=== PATIENT | female | born 1955 | race Caucasian/White ===

== ENCOUNTER 2018-03-25 14:46 | Emergency (ER) | END 2018-03-25 17:18 | disposition home or self-care (01) ==

== ENCOUNTER 2018-12-20 20:29 | Emergency (ER) | payer OTHER ==
[~2018-12-20] VITALS: Ht 152.4 cm; Wt 59.2 kg
[~2018-12-20 20:29] MED LIST: MECL12.574 PO
[2018-12-20 21:05] VITALS: Ht 152.4 cm; Wt 59.2 kg
[2018-12-20] MEDS ORDERED: AZTREONAM 1 GM/NS (PMX) 50 ML IVPB STA (21:11)
[2018-12-20] MEDS ORDERED: SODIUM CHLORIDE 0.9% 1L BAG IV* STA (21:11)
[2018-12-20] MEDS ORDERED: ACETAMINOPHEN 325 MG TAB PO ONE (21:30)
[2018-12-20] MEDS ORDERED: VANCOMYCIN 1 GM (PMX) 250 ML IVPB ONE (21:30)
--- NOTE | 2018-12-20 22:25 | ERD ---
ER Documentation Chief Complaint Chief Complaint C/O ST, COUGH, FEVER, AP, VOMITING/DIARRHEA X1 WEEK HPI 63-year-old woman complains of fever, cough, congestion, sore throat, body aches, diarrhea times 1 day, she was triaged as having symptoms for 1 week although she states her symptoms began this morning. She denies chest pain or shortness of breath, no vomiting, no headache or blurry vision, no neck pain or stiffness. ROS All systems reviewed and are negative except as per history of present illness. Medications Home Meds Active Scripts Ibuprofen* (Motrin*) 600 Mg Tab, 600 MG PO Q8 PRN for PAIN AND/OR INFLAMMATION, #30 TAB Prov:GOGO HARTMANN MD 12/20/18 Mag Hydrox/Al Hydrox/Simeth (Maalox Advanced Suspension) 355 Ml Oral.susp, 2 TSP PO TID PRN for PAIN, #20 OZ Prov:GOGO HARTMANN MD 12/20/18 Meclizine Hcl* (Antivert*) 12.5 Mg Tab, 25 MG PO Q6H PRN for DIZZINESS, #15 TAB Prov:MEDINA ABREU MD 03/25/18 Allergies Allergies: Coded Allergies: Penicillins (Verified Allergy, Unknown, rash, 03/25/18) PMhx/Soc History of Surgery: Yes (C SECTION) Anesthesia Reaction: No Hx Neurological Disorder: No Hx Respiratory Disorders: No Hx Cardiac Disorders: No Hx Psychiatric Problems: No Hx Miscellaneous Medical Probl: Yes (Vertigo) Hx Alcohol Use: No Hx Substance Use: No Hx Tobacco Use: No Smoking Status: Never smoker FmHx Family History: No diabetes Physical Exam Vitals Vital Signs Date Temp Pulse Resp B/P (MAP) Pulse Ox O2 O2 Flow FiO2 Time Delivery Rate 12/20/18 101.1 21:45 12/20/18 101.8 22 124/65 97 21:32 (84) 12/20/18 101.8 105 22 124/65 97 21:05 (84) Physical Exam GENERAL: Well-developed, well-nourished, febrile HEENT: Positive nasal congestion no cervical spine tenderness or step-off deformities, no goiter, no jaundice or icterus, extraocular movements intact without pain. NEURO: Alert and oriented 3, cranial nerves II through XII intact bilaterally, pupils equal round reactive to light, no focal deficits or facial asymmetry, sensation intact distally Strength 5/5 in upper and lower extremities bilaterally CARDIAC: Tachycardic and regular, no murmurs rubs or gallops LUNGS: Clear bilaterally no wheezing crackles or stridor ABDOMEN: Soft nontender, no guarding, no rigidity, no rebound, no psoas sign no obturator sign. SKIN: Warm and dry to touch, no abrasions, contusions, or hematomas, no lacerations, no ecchymosis, no target lesions, and without ulcers EXTREMITIES: No clubbing cyanosis or edema, calves are bilaterally symmetrical, no Homans sign, no popliteal cord sign. Distal pulses equal and bilateral PSYCH: Normal affect without agitation or irritability Result Diagram: 12/20/18212112/20/182121 Results 24 hrs Laboratory Tests Test 12/20/18 21:22 12/20/18 21:25 12/20/18 23:53 White Blood Count 11.2 10^3/ul Red Blood Count 4.60 10^6/ul Hemoglobin 14.0 g/dl Hematocrit 41.2 % Mean Corpuscular Volume 89.6 fl Mean Corpuscular Hemoglobin 30.4 pg Mean Corpuscular 34.0 g/dl Hemoglobin Concent Red Cell Distribution Width 13.2 % Platelet Count 264 10^3/UL Mean Platelet Volume 9.2 fl Immature Granulocytes % 0.400 % Neutrophils % 79.7 % Lymphocytes % 14.0 % Monocytes % 4.7 % Eosinophils % 1.0 % Basophils % 0.2 % Nucleated Red Blood Cells % 0.0 /100WBC Immature Granulocytes # 0.050 10^3/ul Neutrophils # 8.9 10^3/ul Lymphocytes # 1.6 10^3/ul Monocytes # 0.5 10^3/ul Eosinophils # 0.1 10^3/ul Basophils # 0.0 10^3/ul Nucleated Red Blood Cells # 0.0 10^3/ul Prothrombin Time 11.9 Sec Prothrombin Time Ratio 0.9 INR International 0.87 Normalized Ratio Activated Partial Thromboplast 27.4 Sec Time Urine Color YELLOW Urine Clarity SLIGHTLY CLOUDY Urine pH 5.0 Urine Specific [place] 1.025 Urine Ketones NEGATIVE mg/dL Urine Nitrite NEGATIVE mg/dL Urine Bilirubin NEGATIVE mg/dL Urine Urobilinogen NEGATIVE mg/dL Urine Leukocyte Esterase TRACE Juhi/ul Urine Microscopic RBC 33 /HPF Urine Microscopic WBC 3 /HPF Urine Bacteria FEW /HPF Urine Mucus MODERATE /HPF Urine Yeast (Budding) FEW /HPF Urine Hemoglobin 3+ mg/dL Urine Glucose NEGATIVE mg/dL Urine Total Protein 1+ mg/dl Sodium Level 139 mmol/L Potassium Level 4.0 mmol/L Chloride Level 106 mmol/L Carbon Dioxide Level 23 mmol/L Anion Gap 10 Blood Urea Nitrogen 14 mg/dl Creatinine 0.68 mg/dl Est Glomerular Filtrat > 60 mL/min Rate mL/min Glucose Level 116 mg/dl Calcium Level 9.0 mg/dl Total Bilirubin 0.2 mg/dl Direct Bilirubin 0.00 mg/dl Indirect Bilirubin 0.2 mg/dl Aspartate Amino Transf (AST/SGOT) 26 IU/L Alanine 16 IU/L Aminotransferase (ALT/SGPT) Alkaline Phosphatase 130 IU/L Troponin I < 0.012 ng/ml Total Protein 8.0 g/dl Albumin 4.1 g/dl Globulin 3.90 g/dl Albumin/Globulin Ratio 1.05 POC Venous Lactate 1.0 mmol/L 0.8 mmol/L Current Medications Medications Dose Sig/Blanca Start Time Status Last (Trade) Ordered Route PRN Stop Time Admin Dose Reason Admin Sodium 1,780 ml BOLUS OVER 2 12/20/18 DC 12/20/18 Chloride HOURS STAT 21:11 21:45 (NS) IV* 12/20/18 21:12 Vancomycin 250 ml @ ONCE ONCE 12/20/18 DC 12/20/18 HCl 125 mls/hr IVPB 21:30 23:44 12/20/18 23:29 Aztreonam 50 ml @ ONCE STAT 12/20/18 DC 12/20/18 100 mls/hr IVPB 21:11 22:40 12/20/18 21:40 650 mg ONCE ONCE 12/20/18 DC 12/20/18 Acetaminophen PO 21:30 21:45 (Tylenol 12/20/18 21:31 Tab) Fluconazole 200 mg ONCE ONCE 12/20/18 DC 12/20/18 (Diflucan) PO 22:30 23:28 12/20/18 22:31 Ondansetron 4 mg ONCE ONCE 12/20/18 DC HCl (Zofran IV 22:26 Inj) 12/20/18 22:27 Procedures/MDM IV line was established patient was placed on environmental monitoring technician rhythm strip revealed a sinus tachycardia at 100 bpm with upright P and T waves. Patient was febrile. Blood and urine cultures have been ordered results are pending I will follow-up. I do not suspect sepsis. I administered 1 L normal saline IV, aztreonam 1 g IV, vancomycin 1 g IV, acetaminophen p.o., and Zofran 4 mg IV. EKG performed, read by me revealed a normal sinus rhythm at 98 bpm, normal axis, narrow QRS complex, no concerning ST elevations or depressions noted Chest X-ray 1V Interpreted by me: Soft Tissue: No acute abnormalities Bones: No acute abnormalities Mediastinum/Cardiac Silhouette/Lungs: No acute abnormalities CT scan of the abdomen and pelvis was performed findings consistent with diarrheal illness and cholelithiasis, no acute inflammatory infectious pathology noted, please refer to radiologist dictation for full report. CBC and electrolytes are normal, liver function tests were normal, troponin was negative, lactic acid was low, urine analysis positive for fungal infection. I administered fluconazole 200 mg p.o. x1 Patient's vital signs are normal at this time and she defervesced she did receive IV antibiotics and antifungal therapy in the ER and will be discharged with medications for her symptoms, no indication for any further antibiotics Differential diagnoses considered, included but not limited to acute coronary syndrome, pulmonary embolism, aortic dissection, abdominal aortic aneurysm, sepsis, stroke, meningitis, encephalitis, pneumonia, appendicitis, cholecystitis, bowel obstruction, pyelonephritis, nephrolithiasis, cystitis, as well as metabolic, hematologic, and electrolyte abnormalities. As well as a bscess, cellulitis, fractures, and dislocations. Patient feels much better at this time, and vital signs are normal, symptoms have improved. I did give strict instructions to return to the ED if symptoms continue or worsen, patient will otherwise follow-up with primary care physician. Patient understood instructions and agreed to plan. Disclaimer: Inadvertent spelling and grammatical errors are likely due to EHR/dictation software use and do not reflect on the overall quality of patient care. Also, please note that the electronic time recorded on this note does not necessarily reflect the actual time of the patient encounter. Departure Diagnosis: Primary Impression: Diarrhea Diarrhea type: unspecified type Qualified Codes: R19.7 - Diarrhea, unspecified Additional Impressions: Acute URI Fungus infection Condition: Good GOGO HARTMANN MD Dec 20, 2018 22:25
[2018-12-20] MEDS ORDERED: ONDANSETRON 4 MG INJ IV ONE (22:26)
[2018-12-20] MEDS ORDERED: FLUCONAZOLE 200 MG TAB PO ONE (22:30)
[2018-12-20] MEDS ORDERED: MAG355OR14 PO (23:57)
[2018-12-20] MEDS ORDERED: IBUP-1542 PO (23:57)
[2018-12-21 02:35] VITALS: BP 144/78; PULSE 78; RESP 16
== END 2018-12-21 02:36 | disposition home or self-care (01) ==
LOC: E/R 20:29
DX: J06.9 Acute upper respiratory infection, unspecified (principal); R19.7 Diarrhea, unspecified; B49 Unspecified mycosis; R10.9 Unspecified abdominal pain
CPT/HCPCS: 36415; 71045; 74176; 80053; 81001; 83605; 84484; 85025; 85610; 85730; 87040; 87086; 87400; 93005; 96365; 96375; J2405; J3370; J7030; Z7502; Z7610

== ENCOUNTER 2019-05-06 16:23 | Emergency (ER) | payer OTHER ==
[~2019-05-06] VITALS: Ht 152.4 cm; Wt 61.3 kg
[~2019-05-06 16:23] MED LIST changes: +IBUP-1542 PO; +MAG355OR14 PO
[2019-05-06 17:04] VITALS: Ht 152.4 cm; Wt 61.3 kg
--- NOTE | 2019-05-06 23:30 | ERD ---
ER Documentation Chief Complaint Chief Complaint LUQ pain that radiates to back x 2 days, denies fever, n/v HPI 63-year-old female presenting with left upper quadrant pain that radiates to her back for the past 2 days. The pain is burning, intermittent, with no alleviating or exacerbating factors. Pain is moderate to severe. She denies any associated fever, chills, nausea, vomiting, melena or hematochezia. No dysuria or hematuria. No chest pain or shortness of breath. ROS All systems reviewed and are negative except as per history of present illness. Medications Home Meds Active Scripts Ibuprofen* (Motrin*) 600 Mg Tab, 600 MG PO Q8 PRN for PAIN AND/OR INFLAMMATION, #30 TAB Prov:GOGO HARTMANN MD 12/20/18 Mag Hydrox/Al Hydrox/Simeth (Maalox Advanced Suspension) 355 Ml Oral.susp, 2 TSP PO TID PRN for PAIN, #20 OZ Prov:GOGO HARTMANN MD 12/20/18 Meclizine Hcl* (Antivert*) 12.5 Mg Tab, 25 MG PO Q6H PRN for DIZZINESS, #15 TAB Prov:MEDINA ABREU MD 03/25/18 Allergies Allergies: Coded Allergies: Penicillins (Verified Allergy, Unknown, rash, 03/25/18) PMhx/Soc History of Surgery: Yes (C SECTION) Anesthesia Reaction: No Hx Neurological Disorder: No Hx Respiratory Disorders: No Hx Cardiac Disorders: No Hx Psychiatric Problems: No Hx Miscellaneous Medical Probl: Yes (Vertigo) Hx Alcohol Use: No Hx Substance Use: No Hx Tobacco Use: No Smoking Status: Never smoker FmHx Family History: No diabetes Physical Exam Vitals Vital Signs Date Temp Pulse Resp B/P (MAP) Pulse Ox O2 O2 Flow FiO2 Time Delivery Rate 05/06/19 98.0 65 16 143/74 100 Room Air 23:51 (97) 05/06/19 97.9 82 16 114/63 98 17:04 (80) Physical Exam Const: No acute distress Head: Atraumatic Eyes: Normal Conjunctiva ENT: Normal External Ears, Nose and Mouth. Neck: Full range of motion. No meningismus. Resp: Clear to auscultation bilaterally Cardio: Regular rate and rhythm, no murmurs Abd: Soft, mild tenderness to palpation in the left upper quadrant with no rebound or guarding. Negative Padilla sign. No McBurney's point tenderness. Non distended. Normal bowel sounds Skin: No petechiae or rashes Back: No midline or flank tenderness Ext: No cyanosis, or edema Neur: Awake and alert Psych: Normal Mood and Affect Result Diagram: 05/06/19185105/06/192 Results 24 hrs Laboratory Tests Test 05/06/19 18:52 White Blood Count 8.5 10^3/ul Red Blood Count 4.19 10^6/ul Hemoglobin 12.5 g/dl Hematocrit 37.9 % Mean Corpuscular Volume 90.5 fl Mean Corpuscular Hemoglobin 29.8 pg Mean Corpuscular Hemoglobin Concent 33.0 g/dl Red Cell Distribution Width 13.4 % Platelet Count 274 10^3/UL Mean Platelet Volume 9.1 fl Immature Granulocytes % 0.100 % Neutrophils % 47.7 % Lymphocytes % 38.4 % Monocytes % 8.0 % Eosinophils % 5.2 % Basophils % 0.6 % Nucleated Red Blood Cells % 0.0 /100WBC Immature Granulocytes # 0.010 10^3/ul Neutrophils # 4.1 10^3/ul Lymphocytes # 3.3 10^3/ul Monocytes # 0.7 10^3/ul Eosinophils # 0.4 10^3/ul Basophils # 0.1 10^3/ul Nucleated Red Blood Cells # 0.0 10^3/ul Urine Color YELLOW Urine Clarity CLEAR Urine pH 6.0 Urine Specific [place] 1.020 Urine Ketones NEGATIVE mg/dL Urine Nitrite NEGATIVE mg/dL Urine Bilirubin NEGATIVE mg/dL Urine Urobilinogen NEGATIVE mg/dL Urine Leukocyte Esterase NEGATIVE Juhi/ul Urine Microscopic RBC 15 /HPF Urine Microscopic WBC 2 /HPF Urine Mucus FEW /HPF Urine Hemoglobin 3+ mg/dL Urine Glucose NEGATIVE mg/dL Urine Total Protein NEGATIVE mg/dl Sodium Level 140 mmol/L Potassium Level 3.9 mmol/L Chloride Level 107 mmol/L Carbon Dioxide Level 29 mmol/L Anion Gap 4 Blood Urea Nitrogen 18 mg/dl Creatinine 0.81 mg/dl Est Glomerular Filtrat Rate mL/min > 60 mL/min Glucose Level 95 mg/dl Calcium Level 9.2 mg/dl Total Bilirubin 0.3 mg/dl Direct Bilirubin 0.00 mg/dl Indirect Bilirubin 0.3 mg/dl Aspartate Amino Transf (AST/SGOT) 24 IU/L Alanine Aminotransferase (ALT/SGPT) 17 IU/L Alkaline Phosphatase 89 IU/L Total Protein 6.9 g/dl Albumin 3.7 g/dl Globulin 3.20 g/dl Albumin/Globulin Ratio 1.15 Lipase 219 U/L Current Medications Medications Dose Sig/Blanca Start Time Status Last (Trade) Ordered Route PRN Stop Time Admin Dose Reason Admin Famotidine 20 mg ONCE STAT 05/06/19 DC 05/06/19 (Pepcid) PO 23:36 23:49 05/06/19 23:37 40 ml ONCE STAT 05/06/19 DC 05/06/19 Miscellaneous PO 23:36 23:49 Medication 05/06/19 23:37 (Gi Cocktail (2)) Procedures/MDM EMERGENT LABS AND DIAGNOSTIC STUDIES: Lab Results above were reviewed and interpreted by me. CBC: no anemia or evidence of infection CMP: No evidence of clinically significant electrolyte abnormality, acidosis, renal failure, hypoglycemia, liver disease, or biliary obstruction Lipase: no evidence of pancreatitis UA: Microscopic hematuria noted. No evidence of infection Radiology Results as interpreted by Radiology below were reviewed by Adelaida Quispe MD: CT abdomen and pelvis shows no acute abnormalities Initial Nursing notes reviewed. Previous Medical Records requested via the Electronic Health Record. EMERGENCY DEPARTMENT COURSE / MEDICAL DECISION MAKING: Patient presents with left upper quadrant abdominal pain with no associated symptoms. Differential includes but is not limited to pancreatitis, lower lobe pneumonia, gastritis, colitis, ureterolithiasis, pyelonephritis.. Doubt cardiac pathology, aortic dissection. Labs were ordered to evaluate for above and were normal. CT of the abdomen/pelvis was ordered and showed no acute pathology. At this moment the etiology of the abdominal pain is unknown. The patients vitals have been noted and are currently afebrile and hemodynamically stable. The workup, physical exam and observation period do not indicate a serious cause to the pain. I explained to the patient that she may have gastritis for which I recommended medications. The patients symptoms have improved while in the ED and the patient remains hemodynamically stable. Patient was able to tolerate PO. The current assessment has been explained to the patient including the fact that the etiology of the pain cannot be ruled out with certainty. Patient was advised that in the event this is early in the process of a more serious condition they may expect their symptoms to worsen and if so to return to the emergency department immediately. Patient was advised to follow up with primary care physician as soon as possible for re-evaluation within the next 1-2 days. All of the patients questions were answered. Patient verbalized understanding of plan and agrees. Advised to return to the ER for reevaluation within 12 hours if symptoms worsen. Patient's blood pressure was elevated (>120/80) but appears stable without evidence of hypertensive emergency or urgency. The patient was counseled about the risks of hypertension and urged to pursue outpatient monitoring and therapy within a week with their primary care physician. Departure Diagnosis: Primary Impression: Abdominal pain Abdominal location: left upper quadrant Qualified Codes: R10.12 - Left upper quadrant pain Condition: Stable ROMANA QUISPE MD May 06, 2019 23:30
[2019-05-06] MEDS ORDERED: FAMOTIDINE 20 MG TAB PO STA (23:36)
[2019-05-06] MEDS ORDERED: LIDOCAINE/MYLANTA 40 ML BTL PO STA (23:36)
[2019-05-06 23:51] VITALS: BP 143/74; PULSE 65; RESP 16
== END 2019-05-06 23:53 | disposition home or self-care (01) ==
LOC: E/R 16:23
DX: R10.12 Left upper quadrant pain (principal); R40.2142 Coma scale, eyes open, spontaneous, at arrival to emergency department; R40.2252 Coma scale, best verbal response, oriented, at arrival to emergency department; R40.2362 Coma scale, best motor response, obeys commands, at arrival to emergency department
CPT/HCPCS: 36415; 74176; 80053; 81001; 83690; 85025; Z7502; Z7610